=== PATIENT | female | born 1990 | race Caucasian/White ===

== ENCOUNTER 2017-12-21 18:03 | Emergency (ER) | payer OTHER, MEDICAID ==
[~2017-12-21] VITALS: Ht 165.1 cm; Wt 54.4 kg
[~2017-12-21 18:03] MED LIST: ACETAMINOPHEN-1 EAC1 PO; AMOXICILLIN500 M1 PO; AMOXIL 875 MG875 M2 PO; CYCLOBENZAPRINE5 MG PO; DICLOFENAC SODI75 MG PO; HYDROCODON-ACE1 EAC7 PO; HYDROCODONE-AP1 EAC6 PO; IBUPROFEN 600600 M1 PO; IBUPROFEN 800800 MG PO; KEFLEX500 MG PO; MEDROLDOSEPACK PO; NOHOMEMEDICATIONS; NORCO 5-325 TA1 EACH PO; PROAIR HFA8.5 GM INH; PROMETHAZINE D480 ML PO; TESSALON PERLE100 MG PO; TRAMADOL 50 MG50 MG PO; VALIUM5 MG PO; ZOFRAN ODT4 MG SUBLING; ZPAK PO; ZYRTEC10 MG PO
[2017-12-21] MEDS ORDERED: NORCO 5-325 TA1 EAC1 PO (19:34)
[2017-12-21 19:39] VITALS: BP 111/64
== END 2017-12-21 19:41 | disposition home or self-care (01) ==
LOC: M.ERS 18:03
DX: M25.572 Pain in left ankle and joints of left foot (principal); F17.210 Nicotine dependence, cigarettes, uncomplicated

== ENCOUNTER 2018-03-09 11:14 | Emergency (ER) | payer OTHER, MEDICAID ==
[~2018-03-09] VITALS: Ht 165.1 cm; Wt 54.4 kg
[~2018-03-09 11:14] MED LIST changes: +NORCO 5-325 TA1 EAC1 PO
[2018-03-09 11:41] LABS: ABSOLUTE BASOPHILS 0.1 thou/uL (0.0-0.2); ABSOLUTE EOSINOPHILS 0.2 thou/uL (0.0-0.7); ABSOLUTE LYMPHOCYTES 1.9 thou/uL (0.8-5.3); ABSOLUTE MONOCYTES 0.4 thou/uL (0.0-1.2); BASOPHILS 0.7 %; EOSINOPHILS 2.2 %; HEMATOCRIT 39.6 % (37.0-47.0); HEMOGLOBIN 13.4 gm/dL (12.0-15.0); LYMPHOCYTES 21.8 %; MCH 30.1 pg (26.0-34.0); MCHC 33.8 g/dL (28.0-37.0); MCV 89.2 fL (80.0-100.0); MONOCYTES 5.2 %; MPV 8.4 fl. (7.2-11.1); NUCLEATED RBCS 0 /100WBC; PLATELET COUNT* 214 thou/uL (150-400); POLYS 70.1 %; RBC 4.44 mil/uL (4.20-5.00); RDW-CV 12.2 % (10.5-14.5); WBC 8.5 thou/uL (4.0-11.0)
[2018-03-09 11:48] LABS: CALCIUM 8.8 mg/dL (8.5-10.1); CREATININE 0.8 mg/dL (0.6-1.3); POTASSIUM 3.6 mmol/L (3.5-5.1)
[2018-03-09 11:52] LABS: ALBUMIN 4.1 g/dL (3.4-5.0); TOTAL BILIRUBIN 0.2 mg/dL (<0.1-1.0); TOTAL PROTEIN 7.2 g/dL (6.4-8.2)
[2018-03-09 13:24] LABS: URINE BILIRUBIN NEGATIVE (Negative); URINE BLOOD NEGATIVE (Negative); URINE CLARITY CLEAR; URINE COLOR YELLOW; URINE GLUCOSE-RANDOM NEGATIVE (Negative); URINE KETONES NEGATIVE (Negative); URINE LEUKOCYTES-REFLEX NEGATIVE (Negative); URINE NITRITE-REFLEX NEGATIVE (Negative); URINE PROTEIN NEGATIVE (Negative); URINE UROBILINOGEN 0.2 E.U./dl (0.2-1.0)
[2018-03-09] MEDS ORDERED: HYDROCODONE-AP1 EAC6 PO (14:53)
[2018-03-09 15:05] VITALS: BP 108/56
== END 2018-03-09 15:05 | disposition home or self-care (01) ==
LOC: M.ERS 11:14
PROVIDERS: Physician Assistant
DX: R10.11 Right upper quadrant pain (principal); F17.210 Nicotine dependence, cigarettes, uncomplicated

== ENCOUNTER 2018-04-09 20:11 | Emergency (ER) | payer OTHER, MEDICAID ==
[~2018-04-09] VITALS: Ht 165.1 cm; Wt 54.4 kg
[2018-04-09] MEDS ORDERED: ERYTHROMYCIN E3.5 G2 OPHTHALMIC (21:51)
[2018-04-09 22:00] VITALS: BP 128/71
== END 2018-04-09 22:03 | disposition home or self-care (01) ==
LOC: M.ERS 20:11
DX: S00.12XA Contusion of left eyelid and periocular area, initial encounter (principal); F17.210 Nicotine dependence, cigarettes, uncomplicated; Y04.0XXA Assault by unarmed brawl or fight, initial encounter; Y93.89 Activity, other specified; Y92.89 Other specified places as the place of occurrence of the external cause; Y99.8 Other external cause status

== ENCOUNTER 2018-08-10 17:29 | Emergency (ER) | payer OTHER, MEDICAID ==
[~2018-08-10] VITALS: Ht 165.1 cm; Wt 56.7 kg
[~2018-08-10 17:29] MED LIST changes: +ERYTHROMYCIN E3.5 G2 OPHTHALMIC
[2018-08-10 17:40] VITALS: BP 128/66
[2018-08-10] MEDS ORDERED: BACTROBAN15 GM TOP (17:48)
== END 2018-08-10 17:57 | disposition home or self-care (01) ==
LOC: M.ERS 17:29
DX: S60.461A Insect bite (nonvenomous) of left index finger, initial encounter (principal); L02.512 Cutaneous abscess of left hand; F17.210 Nicotine dependence, cigarettes, uncomplicated; W57.XXXA Bitten or stung by nonvenomous insect and other nonvenomous arthropods, initial encounter; Y93.89 Activity, other specified; Y92.89 Other specified places as the place of occurrence of the external cause; Y99.8 Other external cause status

== ENCOUNTER 2020-11-02 21:37 | Emergency (ER) | payer OTHER, MEDICAID ==
[~2020-11-02] VITALS: Ht 165.1 cm; Wt 54.4 kg
[~2020-11-02 21:37] MED LIST changes: +BACTROBAN15 GM TOP
[2020-11-02 22:53] VITALS: BP 101/68
== END 2020-11-02 22:53 | disposition home or self-care (01) ==
LOC: M.ERS 21:37
DX: U07.1 COVID-19 (principal); F17.210 Nicotine dependence, cigarettes, uncomplicated

== ENCOUNTER 2021-10-15 21:00 | Emergency (ER) | payer OTHER, MEDICAID ==
[~2021-10-15] VITALS: Ht 165.1 cm; Wt 60.8 kg
[2021-10-15] MEDS ORDERED: PREDNISONE 20 M20 MG PO (21:37)
[2021-10-15 21:44] VITALS: BP 123/79
== END 2021-10-15 21:45 | disposition home or self-care (01) ==
LOC: M.ERS 21:00
DX: L23.7 Allergic contact dermatitis due to plants, except food (principal); L27.9 Dermatitis due to unspecified substance taken internally; F17.210 Nicotine dependence, cigarettes, uncomplicated; Z90.49 Acquired absence of other specified parts of digestive tract